=== PATIENT | male | born 1990 | race Two or more races ===

== ENCOUNTER 2018-06-15 02:20 | Emergency (ER) | payer SELFPAY ==
[~2018-06-15] VITALS: Ht 170.2 cm; Wt 90.7 kg
[2018-06-15] MEDS: IOHEXOL 300 MG/ML 100ML BOTTLE IJ ONE (02:50)
[2018-06-15 02:55] LABS: Basophils # (auto) 0 uL; Basophils % (auto) 0.2 % (0.0-2.0); Eosinophils # (auto) 0.2 uL; Eosinophils % (auto) 3.4 % (0.0-7.0); Hematocrit 47.5 % (41.0-53.0); Hemoglobin 16.3 g/dL (13.5-17.5); Lymphocytes # (auto) 3.1 uL; Lymphocytes % (auto) 42.8 % (10.0-50.0); Mean Corpuscular Hemoglobin 30.3 pg (28.0-32.0); Mean Corpuscular Hgb Conc. 34.3 g/dL (32.0-36.0); Mean Corpuscular Volume 88.5 fL (80.0-100.0); Monocytes # (auto) 0.4 uL; Neutrophils # (auto) 3.6 uL; Neutrophils % (auto) 48.6 % (37.0-80.0); Nucleated Red Blood Cells % 0.1 %; Platelet Count (auto) 335 10^3/uL (140-450); Red Blood Cells 5.37 10^6/uL (4.5-5.90); Red Cell Distribution Width 13.4 % (11.8-14.3); White Blood Cell 7.3 10^3/uL (4.4-10.8)
[2018-06-15 03:09] LABS: Albumin 4.3 g/dL (3.4-5.0); Calcium 8.3 mg/dL (8.5-10.1); Potassium 3.9 mmol/L (3.5-5.1)
[2018-06-15 03:12] LABS: Bilirubin, Total 0.4 mg/dL (0.2-1.0); Total Protein 8.4 g/dL (6.4-8.2)
[2018-06-15] MEDS: metroNIDAZOLE 500MG/100ML 100 ML IV ONE (05:45)
[2018-06-15] MEDS: SODIUM CHLORIDE 0.9% 2,000 ML IV ONE (05:45)
[2018-06-15] MEDS: LEVOFLOXACIN 750MG 150 ML IV ONE (05:45)
[2018-06-15 05:54] VITALS: BP 127/71
== END 2018-06-15 05:58 | disposition home or self-care (01) ==
LOC: EDBD 02:20 → ER 02:27
DX: K46.9 Unspecified abdominal hernia without obstruction or gangrene (principal); N20.0 Calculus of kidney; K56.7 Ileus, unspecified; G89.29 Other chronic pain; M54.9 Dorsalgia, unspecified; E11.9 Type 2 diabetes mellitus without complications; V43.52XA Car driver injured in collision with other type car in traffic accident, initial encounter; Y93.89 Activity, other specified; Y99.8 Other external cause status; Y92.410 Unspecified street and highway as the place of occurrence of the external cause
CPT/HCPCS: 36415; 72125; 74177; 80053; 80320; 85025; 99284; Q9967